=== PATIENT | female | born 1980 | race Caucasian/White ===

== ENCOUNTER 2020-10-18 09:08 | Emergency (ER) | payer BC, SELFPAY ==
--- NOTE | ~2020-10-18 | XR_ITS ---
XR ankle RT min 3V DATE: 10/18/2020 10:00 INDICATION: Fall. Lateral ankle pain. TECHNIQUE: 4 views, portable technique COMPARISON: None FINDINGS: No fracture or dislocation of the ankle or disruption of the ankle mortise. No soft tissue swelling is evident. IMPRESSION: Negative Reviewed, dictated and finalized at location A. 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
[2020-10-18 09:18] VITALS: BP 140/91; PULSE 74; RESP 17; TEMP 36.5; O2SAT 100
[2020-10-18] MEDS: ACETAMINOPHEN 325 MG TABLET 650 MG PO (09:44)
--- NOTE | 2020-10-18 10:07 | ED.GENADULT ---
HPI - General Adult General Chief complaint: Fall Stated complaint: r ankle injury Time Seen by Provider: 10/18/20 09:10 Source: patient and family Mode of arrival: ambulatory Limitations: no limitations History of Present Illness HPI narrative: Patient is a 39-year-old female who presents to emergency department for evaluation of right ankle injury that occurred this morning after miss stepping patient notes that she has been unable to bear weight does have crutches at home. Patient notes that she skinned her knees but the pain is minimal. Pain radiates from the right ankle up to the hip. Patient denies hip injury or back injury. Patient took ibuprofen prior to arrival presents in no distress ice applied in the room with extremity elevated Related Data Allergies Allergy/AdvReac Type Severity Reaction Status Date / Time No Known Allergies Allergy Unknown Uncoded 10/18/20 09:21 Review of Systems Review of Systems: All systems reviewed & are unremarkable except as noted in HPI and below PMFSH Social History Social History (Updated 10/18/20 @ 10:18 by aDriusz Gilmore PA-C) Smoking status: Former smoker Gender identity (if verbalized by the patient): Female Exam Narrative: Exam Narrative: GENERAL: Well-appearing, well-nourished, and in no acute distress. HEAD: Normocephalic, atraumatic. EYES: PERRLA and EOMI. ENT: Nares clear, no rhinorrhea or epistaxis. Mucous membranes moist. EXTREMITIES: Normal range of motion. No edema. Tenderness right ankle joint no deformity SKIN: Warm, dry, no rash. NEURO: No focal deficits. Alert and oriented x3. Neurovascularly intact. Capillary refill less than 2 seconds PSYCH: Normal mood and affect. Course Course Emergency Course: Patient evaluated in the emergency department will be discharged home with negative radiographs with outpatient follow-up Vital Signs Vital signs: Vital Signs Temperature 97.7 F 10/18/20 09:18 Pulse Rate 74 10/18/20 09:18 Respiratory Rate 17 10/18/20 09:18 Blood Pressure 140/91 H 10/18/20 09:18 Pulse Oximetry 100 10/18/20 09:18 Temperature 97.7 F 10/18/20 09:18 Pulse Rate 74 10/18/20 09:18 Respiratory Rate 17 10/18/20 09:18 Blood Pressure 140/91 H 10/18/20 09:18 Pulse Oximetry 100 10/18/20 09:18 Medical Decision Making MDM Narrative Medical decision making narrative: Patients injury or pain is consistent with musculoskeletal etiology. No signs of neurological or vascular compromise on exam. Compartments and tisues are soft without signs of compartment syndrome. Pain is felt appropriate for further evaluation on an outpatient basis. Vital Signs Vital Signs: Vital Signs Temperature 97.7 F 10/18/20 09:18 Pulse Rate 74 10/18/20 09:18 Respiratory Rate 17 10/18/20 09:18 Blood Pressure 140/91 H 10/18/20 09:18 Pulse Oximetry 100 10/18/20 09:18 Temperature 97.7 F 10/18/20 09:18 Pulse Rate 74 10/18/20 09:18 Respiratory Rate 17 10/18/20 09:18 Blood Pressure 140/91 H 10/18/20 09:18 Pulse Oximetry 100 10/18/20 09:18 Imaging Data Radiologist's impression: ITS Impressions Ankle X-Ray 10/18/20 10:04 IMPRESSION: Negative Discharge Plan Discharge Clinical Impression: Right ankle sprain Patient Disposition: Home, Self-Care Condition: Stable Instructions: Antibiotic Form, Crutch Instructions (ED), Ankle Sprain (DC) Additional Instructions: Wear brace and use crutches. No weight on the affected leg until able to bear weight without pain. Ice and elevate extremity. Pain medication as needed and directed. Follow up with your doctor for further care. Return if symptoms worsen or concerns Follow-up/Referrals: Ok Hamilton MD [Primary Care Provider] - Stand Alone Forms: Work/School Release IP
[2020-10-18 10:37] VITALS: BP 134/90; PULSE 80; RESP 17; O2SAT 100
== END 2020-10-18 10:38 | disposition home or self-care (01) ==
PROVIDERS: Emergency Provider Emergency Medicine; PCP Emergency Medicine
DX: S93.401A Sprain of unspecified ligament of right ankle, initial encounter (principal); Z87.891 Personal history of nicotine dependence; W10.9XXA Fall (on) (from) unspecified stairs and steps, initial encounter
CPT/HCPCS: 73610; 99283; A9270

== ENCOUNTER → 2021-09-30 01:03 | Outpatient (CLI) | payer BC, SELFPAY ==
[2021-10-01 23:20] LABS: SARS-CoV-2 RNA PCR Positive
== END ==
PROVIDERS: PCP Emergency Medicine; Visit Provider Emergency Medicine
DX: U07.1 COVID-19 (principal)
CPT/HCPCS: C9803; U0003; U0005

== ENCOUNTER → 2022-01-17 14:46 | Outpatient (CLI) | payer BC, SELFPAY ==
--- NOTE | ~2022-01-17 | MM_ITS ---
EXAMINATION: MM screening dominic BI w gato HISTORY: Screening mammogram TECHNIQUE: Craniocaudal and mediolateral oblique 3-D tomosynthesis images were obtained and synthetic 2-D images were generated. CAD analysis was submitted and interpreted. COMPARISON: No prior mammogram is available for comparison at this institution. BREAST PARENCHYMAL COMPOSITION: There are scattered areas of fibroglandular density. FINDINGS: There is no evidence of suspicious mass, calcification, or architectural distortion to sugg est malignancy in either breast. There has been no suspicious interval change. IMPRESSION: 1. No mammographic evidence of malignancy. 2. Recommend routine screening mammography in one year. BI-RADS Category 1: Negative Reviewed, dictated and finalized at location A.
== END ==
PROVIDERS: PCP Obstetrics & Gynecology Gynecology; Visit Provider Obstetrics & Gynecology Gynecology
DX: Z12.31 Encounter for screening mammogram for malignant neoplasm of breast (principal)
CPT/HCPCS: 77063; 77067

== ENCOUNTER 2024-12-09 10:21 | Outpatient (CLI) | payer BC, SELFPAY ==
--- NOTE | ~2024-12-09 | US_ITS ---
EXAMINATION: US pelvic complete w TV INDICATION: Pelvic pain Comparison:No prior studies for comparison. TECHNIQUE: Multiple transabdominal and endovaginal sonographic images of the pelvis performed. FINDINGS: The uterus measures 8.1 x 5.9 x 4.3 cm. The endometrial complex measures 7 mm. The right ovary measures 2.5 x 2.2 x 2.3 cm and the left ovary measures 3 x 2.1 x 3.2 cm. There is a minimally complicated cyst of the left ovary measuring 2.7 cm. There are small follicles in each ovar y. Normal doppler signal in both ovaries. There is free fluid in the pelvis. There are no abnormal masses seen on either side. IMPRESSION: 1. Minimally complicated cyst of the left ovary measuring 2.7 cm. Free fluid in the pelvis. Reviewed, dictated and finalized at location A.
== END 2024-12-09 10:22 | disposition home or self-care (01) ==
PROVIDERS: PCP Internal Medicine; Visit Provider Nurse Practitioner
DX: R10.2 Pelvic and perineal pain (principal)
CPT/HCPCS: 76830; 76856

== ENCOUNTER 2025-01-14 12:47 | Outpatient (CLI) | payer BC, SELFPAY ==
--- NOTE | ~2025-01-14 | MM_ITS ---
EXAMINATION: MM screening dominic BI w gato HISTORY: Screening TECHNIQUE: Craniocaudal and mediolateral oblique 3-D tomosynthesis images were obtained and synthetic 2-D images were generated. CAD analysis was submitted and interpreted. COMPARISON: 01/17/2022 BREAST PARENCHYMAL COMPOSITION: Dense: The breasts are heterogeneously dense, which may obscure small masses FINDINGS: There is no evidence of suspicious mass, calcification, or architectural distortion to sugg est malignancy in either breast. There has been no suspicious interval change. IMPRESSION: 1. No mammographic evidence of malignancy. 2. Recommend routine screening mammography in one year. BI-RADS Category 1: Negative Reviewed, dictated and finalized at location A.
== END 2025-01-14 12:48 | disposition home or self-care (01) ==
LOC: MICIMG 12:48
PROVIDERS: PCP Internal Medicine; Visit Provider Obstetrics & Gynecology Gynecology
DX: Z12.31 Encounter for screening mammogram for malignant neoplasm of breast (principal)
CPT/HCPCS: 77063; 77067

== ENCOUNTER 2025-02-06 08:56 | Outpatient (CLI) | payer BC, SELFPAY ==
--- NOTE | ~2025-02-06 | US_ITS ---
Pelvic ultrasound. Clinical History: Left ovarian cyst COMPARISON: 12/09/2024 Technique: Realtime transabdominal and transvaginal scanning of the pelvis was performed. Color flow Doppler and Doppler spectral analysis were performed. Findings: The uterus is retroverted.. The endometrial stripe has a thickness of 4 mm. No focal mass is identified. The right ovary measures 1.2 x 1.6 x 0.9 cm. No significant right ovarian or adnexal mass is seen. The left ovary measures 1.5 x 1.5 x 2.2 cm. Left ovarian cyst measures 1.6 cm in maximum diameter. There is no evidence of free fluid in the cul de sac. Impression: 1.6 cm left ovarian cyst, decreased in size from prior exam. Reviewed, dictated and finalized at [facility]. Impression: 1.6 cm left ovarian cyst, decreased in size from prior exam.
== END 2025-02-06 08:57 | disposition home or self-care (01) ==
LOC: GOSHIMG 08:56
PROVIDERS: PCP Internal Medicine; Visit Provider Obstetrics & Gynecology Gynecology
DX: N83.202 Unspecified ovarian cyst, left side (principal)
CPT/HCPCS: 76830; 76856